=== PATIENT | female | born 1990 | race Caucasian/White ===

== ENCOUNTER 2024-08-21 17:04 | Emergency (ER) | payer OTHER, SELFPAY ==
[2024-08-21 17:17] VITALS: BP 128/61; PULSE 91; RESP 18; TEMP 37.1; O2SAT 98; BMI 28.9
[2024-08-21 17:31] LABS: MANUAL DIFF FLAG NO
[2024-08-21 17:36] LABS: Basophils Percent Auto 0.5 % (0-2); Eosinophils Percent Auto 0.2 % (0-4); Hematocrit 36.4 % (37.0-47.0); Hemoglobin 12.6 g/dl (12.0-16.0); Imm Gran Abs Auto 0.02 X10*3/uL (0.00-0.03); Imm Gran Pct Auto 0.5 % (0.0-0.4); Lymphocytes Absolute Auto 0.7 X10*3/uL (1.2-4.9); Lymphocytes Percent Auto 16.3 % (20-40); Mean Corpuscular HGB Conc 34.6 g/dl (31.0-35.0); Mean Corpuscular Hemoglobin 30.4 pg (27.0-33.0); Mean Corpuscular Volume 87.9 fL (80.0-98.0); Mean Platelet Volume 9.8 fL (9.4-12.3); Monocytes Absolute Auto 0.5 X10*3/uL (0.1-1.2); Monocytes Percent Auto 12.1 % (2-11); Neutrophils Absolute Auto 2.9 x10*3/uL (2.0-8.3); Neutrophils Percent Auto 70.4 % (45-73); Platelet Count 171 X10*3/uL (160-400); Red Blood Count 4.14 X10*6/uL (4.20-5.50); White Blood Count 4.1 X10*3/uL (4.8-10.8)
[2024-08-21 17:40] LABS: IDNOW Serial# 58CA691E; Strep A Nucleic Acid Negative (Negative)
[2024-08-21 17:48] LABS: Alanine Aminotransferase 24 U/L (0-31); Albumin Level 3.9 g/dL (3.5-5.0); Alkaline Phosphatase 50 U/L (39-117); Anion Gap 11 (12-20); Aspartate Amino Transferase 23 U/L (5-31); Bilirubin Total 0.6 mg/dL (0.0-1.0); Blood Urea Nitrogen 5 mg/dL (9-16); Calcium 9.1 mg/dL (8.4-10.2); Carbon Dioxide 22 mmol/L (22-29); Chloride 110 mmol/L (96-108); Creatinine Clr Calc Pharmacy 109.1; Estimated Glomerular Filt Rate > 60; Glucose Random 92 mg/dL (60-115); Potassium 4.1 mmol/L (3.3-5.1); Sodium 139 mmol/L (135-145); Total Protein 7.5 g/dL (6.5-8.0)
[2024-08-21 18:11] LABS: Influenza A PCR POSITIVE (Negative); Influenza B PCR NEGATIVE (Negative); Resp Syncy Virus RNA Qual PCR NEGATIVE (Negative); SARS COV2 PCR INHOUSE NEGATIVE (Negative)
[2024-08-21 20:32] VITALS: BP 137/68; PULSE 84; RESP 18; TEMP 36.8; O2SAT 100
--- NOTE | 2024-08-21 20:35 | ED.GENADULT ---
HPI - General Adult General Chief complaint: General Medical Stated complaint: Flu like symptoms/Unable to open mouth Time Seen by Provider: 08/21/24 20:35 Source: patient, RN notes reviewed and old records reviewed Mode of arrival: ambulatory Limitations: no limitations History of Present Illness ED Provider: Elissa SALAS narrative: 34-year-old female presents for evaluation of fevers, body aches, sore throat. Patient's symptoms started a little over 2 days ago on Tuesday morning. 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 She was able to open her mouth to reports that he is painful to do so and she was a lump on the right side of her throat Related Data Allergies Allergy/AdvReac Type Severity Reaction Status Date / Time ibuprofen Allergy Hives Verified 08/21/24 17:21 Review of Systems Constitutional: Constitutional: Reports body ache(s), Reports chills, Reports fever(s) and Denies headache(s) ENT: Denies vertigo, Denies dizziness, Denies headache(s), Reports sore throat and Reports throat swelling Cardiovascular: Cardiovascular: Denies chest pain and Denies dyspnea Respiratory: Respiratory: Reports cough and Denies dyspnea Gastrointestinal: Gastrointestinal: Denies abdominal pain, Reports nausea and Denies vomiting Musculoskeletal: Musculoskeletal: Denies back pain Integumentary/Breasts: Skin/Breast: Denies rash Neurologic: Denies vertigo, Denies dizziness and Denies headache(s) Allergic/Immunologic: Allergic/Immunologic: Reports throat swelling PMFSH Social History Social History Advance Directives: No Advance Directives Information Provided: No Physical Exam ED Vital Signs: Vital Signs - 24 hr 08/21/24 17:17 08/21/24 20:32 08/21/24 20:40 Temperature 98.8 F 98.2 F 98.2 F Pulse Rate 91 84 84 Respiratory Rate 18 18 18 Blood Pressure 128/61 137/68 137/68 Pulse Oximetry 98 100 100 Oxygen Delivery Method Room Air Room Air Room Air BMI result Body Mass Index 28.9 Const General: healthy appearing, comfortable, no acute distress, alert and awake Nutritional Appearance: well nourished Orientation/consciousness: patient oriented x3 HENMT Other: Retropharyngeal erythema but no evidence of abscess, no exudates. Uvula midline Head: Yes normocephalic and Yes atraumatic Eyes Eyelids: Yes eyelids normal Conjunctivae: conjunctivae normal Sclerae: sclerae normal Corneas: corneas normal Pupils: Equal, round and reactive pupils present EOM: EOMs intact bilaterally Neck Neck: Yes full ROM Resp Effort & Inspection: normal respiratory effort, able to speak in complete sentences, no audible wheezes and not labored Auscultation: clear to auscultation bilaterally Cardio Rate: regular rate Rhythm: regular rhythm Skin General skin exam: no rashes or lesions noted and elasticity normal Neuro General: patient oriented x3 Cranial nerves: Yes Equal, round and reactive pupils present and Yes Bilaterally intact EOM present Cognition (Neuro): normal cognition Extrem Other: Moving all extremities well without any obvious deformities Medical Decision Making Medical Decision Making [facility] Narrative: 34-year-old female presents for evaluation of flu-like symptoms, she does not fact have the flu. Labs are reviewed without any concerning abnormalities. She has a mild leukopenia which will likely related to the viral illness. No significant chemistry abnormalities warranting intervention. Vital signs are stable. She is outside the window for Tamiflu treatment, she will be treated symptomatically only. She was given a work note for the rest of the week so she does not infect others with the daycare Differential Diagnosis Differential Diagnoses: The differential diagnosis associated with the presentation includes Influenza COVID-19 Bronchitis Pneumonia Lab Data [facility] Lab Attestation statement: I reviewed the patient's lab results. As above 08/21/24 17:28 08/21/24 17:28 Labs: Lab Results 08/21/24 Range/Units 17:28 WBC 4.1 L (4.8-10.8) X10*3/uL RBC 4.14 L (4.20-5.50) X10*6/uL Hgb 12.6 (12.0-16.0) g/dl Hct 36.4 L (37.0-47.0) % MCV 87.9 (80.0-98.0) fL MCH 30.4 (27.0-33.0) pg MCHC 34.6 (31.0-35.0) g/dl RDW 13.0 (11.0-16.0) % Plt Count 171 (160-400) X10*3/uL MPV 9.8 (9.4-12.3) fL Immature Gran % (Auto) 0.5 H (0.0-0.4) % Neut % (Auto) 70.4 (45-73) % Lymph % (Auto) 16.3 L (20-40) % [place] % (Auto) 12.1 H (2-11) % Eos % (Auto) 0.2 (0-4) % Baso % (Auto) 0.5 (0-2) % Lymph # (Auto) 0.7 L (1.2-4.9) X10*3/uL [place] # (Auto) 0.5 (0.1-1.2) X10*3/uL Eos # (Auto) 0.0 (0.0-0.4) X10*3/uL Baso # (Auto) 0.0 (0.0-0.2) X10*3/uL Abs Immat Gran (auto) 0.02 (0.00-0.03) X10*3/uL Absolute Neuts (auto) 2.9 (2.0-8.3) x10*3/uL Absolute Nucleated RBC 0.000 (0.0-0.012) X10*3/uL Nucleated RBC % (auto) 0.0 (0.0-0.2) /100WBC Sodium 139 (135-145) mmol/L Potassium 4.1 (3.3-5.1) mmol/L Chloride 110 H (96-108) mmol/L Carbon Dioxide 22 (22-29) mmol/L Anion Gap 11 L (12-20) BUN 5 L (9-16) mg/dL Creatinine 0.70 (0.5-1.4) mg/dL Estim Creat Clear Calc 109.1 Estimated GFR > 60 Random Glucose 92 (60-115) mg/dL Calcium 9.1 (8.4-10.2) mg/dL Total Bilirubin 0.6 (0.0-1.0) mg/dL AST 23 (5-31) U/L ALT 24 (0-31) U/L Alkaline Phosphatase 50 (39-117) U/L Total Protein 7.5 (6.5-8.0) g/dL Albumin 3.9 (3.5-5.0) g/dL Influenza Type A (PCR) POSITIVE A (Negative) Influenza Type B (PCR) NEGATIVE (Negative) RSV RNA Qual (PCR) NEGATIVE (Negative) SARS-CoV-2 RNA (RT-PCR) NEGATIVE (Negative) S. pyogenes GrpA NIGEL Negative (Negative) Discharge Plan Discharge Clinical Impression: Influenza A Patient Disposition: Home, Self-Care Instructions: Influenza (ED) Additional Instructions: You tested positive for influenza A. Your white blood cell count was just below normal which is a common result of the flu The rest of your blood work was reassuring The swollen gland in your neck she will resolve after about a week or 2 when the flu resolves Use ibuprofen/Tylenol for fevers and body aches Return for new or worsening symptoms, follow up with your primary doctor Stand Alone Forms: Work/School Release Interventions: ED Discharge Assessment Last Done: 08/21/24 20:40 Discharge Date/Time: 08/21/24 20:46 Print Language: Amharic
[2024-08-21 20:40] VITALS: BP 137/68; PULSE 84; RESP 18; TEMP 36.8; O2SAT 100
--- OUTSIDE RECORDS SUMMARY | 2024-08-21 20:42 | XMS_ITS | Encounter Summary ---
Author Organization [facility] Address [address] [place] [address] Care Team Providers Care Doctor'S Assistant Name Role Phone Enedina Gustafson MD Primary Care Provider [phone] Reason for Visit * Reason Onset Date Comments Sore Throat 08/21/2024 Vomiting 08/21/2024 Encounter Details Date Type Department Care Team (Late st Contact Info) Description 08/21/2024 Nurse Triage Adult Medicine [facility] [address] [place] [phone] Enedina Gustafson MD [address] [place] [address] Sore Throat; Vomiting Social History Tobacco Use Types Packs/Day Years Used Date Smoking Tobacco: Never Smokeless Tobacco: Never Alcohol Use Standard Drinks/Week Comments No 0 (1 standard drink = 0.6 oz pur e alcohol) Housing Instability Answer Date Recorde d Are you worried that in the next 2 months you may not have stable housing? No 07/08/2024 Food Access & Nutrition Answer Date Rec orded Do you have access to a vari ety of food including fruits and vegetables? Yes 07/08/2024 Access to Healthcare Answer Date Record ed Within the last 3 months, ho w many times did you visit the emergency department for your medical care? 0 07/08/2024 Health Literacy Answer Date Recorded How often do you need to hav e someone help you when you read instructions, pamphlets, or other written material from your doctor or pharmacy? Sometimes 07/08/2024 Caregiver: How often do you need to have someone help you when you read instructions, pamphlets, or other written material from your doctor or pharmacy? Not on file 07/08/2024 Financial Risk Answer Date Recorded How hard is it for you to pa y for the very basics like food, housing, medical care, and air conditioning / heating? Not very hard 07/08/2024 Transportation Answer Date Recorded Has the lack of transportati on kept you from meetings, work, or from getting things needed for daily living? No Has the lack of transportati on kept you from medical appointments or from getting medications? No 07/08/2024 Social Isolation Answer Date Recorded How often do you feel lonely or isolated from those around you? Sometimes 07/08/2024 Food Risk Answer Date Recorded Within the past 12 months we worried whether our food would run out before we got money to buy more. Never true 07/08/2024 Within the past 12 months th e food we bought just didn't last and we didn't have money to get more. Never true 07/08/2024 Dependent Care Answer Date Recorded Do you need help finding or paying for care for your loved ones. For example, child care director or elderly care for an older adult? Yes 07/08/2024 Education Answer Date Recorded Do you think completing more education or training, like finishing a GED, going to college, or learning a trade, would be helpful for you? Patient declined 07/08/2024 Employment and Income Answer Date Recor ded During the last four weeks, have you been actively looking for work? Unable to respond 07/08/2024 Living Situation Answer Date Recorded What is your living situation? 0 07/08/2024 Comments No Sex and Gender Information Value Date Recorded Sex Assigned at Not on file Legal Sex Female 2:01 PM EST Gender Identity Not on file Sexual Orientation Not on file documented as of this encounter Progress Notes * Penny Nolan RN - 08/21/2024 1:15 PM EDT She was instructed to go to the ER for further evaluation and treatment. She is in agreement with this plan and states she will go to [facility] ER. Reason for Disposition Unable to open mouth completely Answer Assessment - Initial Assessment Questions 1. ONSET: When did the throat start hurting? (Hours or days ago) 08/19/24 2. SEVERITY: How bad is the sore throat? (Scale 1-10; mild, moderate or severe) - MILD (1-3): Doesn't interfere with eating or normal activities. - MODERATE (4-7): Interferes with eating some solids and normal activities. - SEVERE (8-10): Excruciating pain, interferes with most normal activities. - SEVERE WITH DYSPHAGIA (10): Can't swallow liquids, drooling. She rates the sore throat as 8/10. She has pain when she swallows. 3. STREP EXPOSURE: Has there been any exposure to strep within the past week? If Yes, ask: What type of contact occurred? No known exposure. She went to her niece's birthday green party on Tuesday. 4. VIRAL SYMPTOMS: Are there any symptoms of a cold, such as a runny nose, cough, hoarse voice or red eyes? Cough and hoarse voice 5. FEVER: Do you have a fever? If Yes, ask: What is your temperature, how was it measured, and when did it start? Chills this morning. Did not take temp as she does not have a thermometer. 6. PUS ON THE TONSILS: Is there pus on the tonsils in the back of your throat? Unknown 7. OTHER SYMPTOMS: Do you have any other symptoms? (e.g., difficulty breathing, headache, rash) She is also reporting body aches, chills, slight headache and vomiting. No rash. 8. : Is there any chance you are ? When was your last menstrual period? No. Her LMP was 08/03/24 Protocols used: Sore Throat-A-AH * Isabel Tapia - 08/21/2024 12:18 PM EDT Patient call requires triage: Symptoms patient is presenting: c/o bad sore throat, body aches, chills and vomiting. How long has patient had these symptoms?: 08/19/24 For ALL patients calling to schedule any appointment (routine, sick visit, follow up, consult, etc.) in the outpatient setting please ask the following questions: Do you have fever of higher than 101, sore throat with difficulty swallowing or severe shortness ofbreath? no If YES to any of these above symptoms, send a message to triage and do not book. Red dot. If no, an audio or video visit should be booked. Have you had close contact with someone with Coronavirus in the last 14 days? no Have you traveled abroad? no Have you traveled recently to another state outside of [place], [place], [place], [place], [place], [place], [place]? no o If yes, did you quarantine for 14 days or have a negative covid test? no If yes to any of the above, patient is not to be scheduled in office until after 14 day quarantine or negative covid test. If pain or injury related was it due to an accident at work or from a motor vehicle accident? If yes, date of accident/Injury: No If yes, gather 3rd green party insurance information Third Constitution Party Information: not applicable PCP: Enedina Gustafson MD Payor: [facility] MEDICARE / Plan: [employer] ONE CARE / Product Type: *No Product type* / documented in this encounter Plan of Treatment Upcoming Encounters Date Type Department Care Team (Late st Contact Info) Description 09/24/2024 9:15 AM EDT Consult Orthopedic Surgery - [place] [address] [address] [phone] Yanick Guidry DPM [address] [address] 10/18/2024 9:00 AM EDT Office Visit Obstetrics and Gynecology - [address] [phone] Jessenia Springer CNM [address] [place] [address] documented as of this encounter Visit Diagnoses Not on filedocumented in this encounter Additional Health Concerns Assessment Noted Time PHQ-9 Depression Total Score: 18 025 10:20 AM EST documented as of this encounter Care Teams Doctor'S Assistant Relationship Specialty Start Date End Date Enedina Gustafson MD [address] [place] [address] PCP - General Internal Medicine 03/21/15 documented as of this encounter
--- OUTSIDE RECORDS SUMMARY | 2024-08-21 20:42 | XMS_ITS | Clinical Summary ---
Author Organization [facility] [address] [facility] Address [address] [place] [address] Phone Care Team Providers Care Engineering Scientist Name Role Phone Enedina Gustafson MD Primary Care Provider [phone] Allergies No known active allergies Medications lurasidone (LATUDA) 80 mg tablet Take 1 tablet (80 mg total) by mouth. 4 Active topiramate (TOPAMAX) 50 mg tablet Take 1 tablet (50 mg total) by mouth. 4 Active betamethasone dipropionate (DIPROSONE) 0.05 % ointment Apply topically. 4 Active diclofenac (VOLTAREN) 1 % topical gel Apply 1 g topically every 6 (six) hours. 4 Active triamcinolone (KENALOG) 0.1 % cream Apply topically. 4 Active Humira,CF, Pen [id number]-BZ-ID 80 mg/0.8 mL pen Inject 0.8 mL (80 mg total) under the skin. 3 Active SUMAtriptan (IMITREX) 50 mg tablet Take 1 tablet (50 mg total) by mouth. 3 Active Setlakin 0.15 mg-30 mcg (91) per tablet TAKE 1 TABLET BY MOUTH DAILY 91 tablet 5 Active Additional Information Patient not taking.Reported on 07/23/2024 omeprazole (PriLOSEC) [address] capsule Take 1 capsule (20 mg total) by mouth 1 (one) time each day. 90 each 3 5 Active medroxyPROGESTER one (PROVERA) 10 mg tabletIndication s:Amenorrhea Take 1 tablet (10 mg total) by mouth 1 (one) time each day for 10 days. 10 tablet 5 Active Active Problems Problem Noted Date Diagnosed Date Family history of breast cancer 07/23/2024 Overview (07/23/2024): 11/2022- Negative Genetic testing, 22.9% Terer-Cuzick score Bipolar affective disorder 05/08/2024 Depression with anxiety 05/08/2024 Eczema 07/06/2023 Hidradenitis suppurativa 08/05/2021 Overview (06/28/2024): GERD (gastroesophageal reflux disease) 0 Marijuana use 05/23/2019 OCD (obsessive compulsive disorder) 12/29/2017 Obesity (BMI 30.0-34.9) 08/18/2017 IBS (irritable bowel syndrome) 07/13/2017 Personality disorder 10/14/2011 Overview (05/08/2024): Follows at [facility] [place] [facility], gets meds through them Resolved Problems Problem Noted Date Diagnosed Date Resolved Date Family history of breast can cer in first degree relative 05/08/2024 06/28/2024 Encounters Date Type Department Care Team Description 08/21/2024 Nurse Triage Adult Medicine [facility] - [address] [phone] Enedina Gustafson MD Sore Throat; Vomiting 07/25/2024 Telephone Obstetrics and Gynecology - [address] [phone] Jessenia Springer CNM 07/23/2024 9:45 AM EST Office Visit Obstetrics and Gynecology - [address] [phone] Jessenia Springer CNM Encounter for gynecological examination without abnormal finding (Primary Dx); Urine test negative; Night sweats; Amenorrhea; control counseling 07/09/2024 9:00 AM EST Office Visit Adult [address] [phone] Enedina Gustafson MD Routine general medical examination at a health care facility (Primary Dx); Hidradenitis suppurativa; Bipolar disorder in partial remission, most recent episode unspecified type (CMS/HCC); Gastroesophageal reflux disease without esophagitis; Pain in both feet; Personality disorder (CMS/HCC) 06/20/2024 Telephone Obstetrics and Gynecology [address] [phone] Anne Pierre MD Menstrual Problem 05/29/2024 Telephone Adult Medicine [address] [phone] Enedina Gustafson MD MMR from Last 3 Months Immunizations Name Administration Dates Next Due Rabies Vaccine, For Intramus cular Injection Retired Code 10/16/2019,10/13/2019 Rho (D) Immune Globulin 10/20/2019,10/16/2019, Tdap Tetanus diptheria acell ular pertussis (Boostrix; Adacel) 7yo and older 10/13/2019,11/10/2011 Surgical History Surgery Date Site/Laterality Comments COLONOSCOPY 05/02/2017 normal Medical History Medical History Date Comments Bipolar affective disorder (CMS/HCC) Depression with anxiety Schizophrenia, schizo-affective type (CMS/HCC) IBS (irritable bowel syndrome) 07/13/2017 Obese 08/18/2017 OCD (obsessive compulsive disorder) 12/29/2017 GERD (gastroesophageal reflux disease) 0 Migraines without aura Family History Medical History Relation Name Comments Breast cancer Aunt maternal possibly ovari an cancer (?) Other: glaucoma suspect Brother x 1 Other: fatty liver Father Other: PTSD Half-Sister x 1 Breast cancer Mother BRCA negative; HTN, HLD, diabetes Relation Name Status Comments Aunt maternal Brother x 1 Alive Father Alive Half-Sister x 1 Alive Maternal Grandfather Maternal Grandmother Alive Mother Alive Paternal Grandfather Paternal Grandmother Social History Tobacco Use Types Packs/Day Years Used Date Smoking Tobacco: Never Smokeless Tobacco: Never Tobacco Cessation:Counseling Given: Not Answered Alcohol Use Standard Drinks/Week Comments No 0 [...] care for your loved ones. For example, childcare teacher or elderly care for an older adult? [...] on file Sexual Orientation Not on file Obstetrics History Para Term AB IAB SAB Ectopic Multiple Livin g Live Births 2 1 1 1 1 1 1 Date Outcome GA Total Labor Labor/2nd/3rd Weight Sex Type Anes PTL Natalia A1 A5 Name Clin 1 IAB 2011 Term 39w 6d 8h 30m/ 2807 g (99 oz) M Vag-S pont Epidur al Livin g 8 9 [facility] Delivery Location:[facility] Comments:marginal cord insertion Last Filed Vital Signs Vital Sign Reading Time Taken Comments Blood Pressure 123/84 07/23/2024 9:30 AM EST Pulse 92 07/23/2024 9:30 AM EST Temperature 36.2 ??C (97.2 ??F) 07/09/2024 8:57 AM ES T Respiratory Rate 14 07/09/2024 8:57 AM EST Oxygen Saturation 98% 07/09/2024 8:57 AM EST Inhaled Oxygen Concentration - - Weight 75.3 kg (166 lb) 07/23/2024 9:30 AM EST Height 160 cm (5' 3 ) 07/09/2024 8:57 AM EST Body Mass Index 29.41 07/09/2024 8:57 AM EST Plan of Treatment Upcoming Encounters Date Type Department Care Team (Late st Contact Info) Description 09/24/2024 9:15 AM EDT Consult Orthopedic Surgery - [place] [address] [phone] Yanick Guidry, TOMASA [address] [address] 10/18/2024 9:00 AM EDT Office Visit Obstetrics and Gynecology [address] [phone] Jessenia Springer, RONM [address] [place] [address] [place] [address] Health Maintenance Due Date Last Done Comments Hepatitis B Vaccines (1 of 3 - 19+ 3-dose series) 2009 COVID-19 Vaccine (3 - Pfizer risk series) 07/16/2021 06/18/2021, 05/28/2021 Medicare Annual Wellness Visit 05/17/2022 Influenza Vaccine (#1) 2024 Postp oned from 02/12/2024 (Patient Refused) Depression Screening 07/08/2025 07/08/2024 Social Influencers of Health Screening 07/08/2025 07/08/2024 Cholesterol Screening (Lipid Panel) 07/07/2028 07/07/2023 Cervical Cancer Screening: HPV 07/23/2029 07/23/2024, 07/23/2024, 05/12/2020, Additional history exists DTaP,Tdap,and Td Vaccines (3 - Td or Tdap) 10/12/2029 10/13/2019, 11/10/2011 HIV Screening Completed 10/01/2020 Hepatitis C Screening Completed 10/01/2020 HIB Vaccines Aged Out No longer eligi ble based on patient's age to complete this topic HPV Vaccines Aged Out No longer eligi ble based on patient's age to complete this topic Hepatitis A Vaccines Aged Out No long er eligible based on patient's age to complete this topic IPV Vaccines Aged Out No longer eligi ble based on patient's age to complete this topic MMR Vaccines Aged Out No longer eligi ble based on patient's age to complete this topic Meningococcal ACWY Vaccine Aged Out N o longer eligible based on patient's age to complete this topic Meningococcal B Vacine Aged Out No lo nger eligible based on patient's age to complete this topic Pneumococcal Vaccine: Pediatrics (0 to 5 Years) and At-Risk Patients (6 to 64 Years) Aged Out No longer eligible based on patient's age to complete this topic RSV Immunization Patients Under 20 months Aged Out No longer eligible based on patient's age to complete this topic Varicella Vaccines Aged Out No longer eligible based on patient's age to complete this topic Procedures Procedure Name Priority Date/Time Associated Diagnosis Comments THYROID STIMULATING HORMONE WITH REFLEX TO FREE T4 AND FREE T3 Routine 07/24/2024 8:02 AM EST Night sweats PAP SMEAR Routine 07/23/2024 1:30 PM EST Encounter for gynecological examination without abnormal finding HPV GENOTYPE Routine 07/23/2024 1:30 PM EST Encounter for gynecological examination without abnormal finding HPV WITH REFLEX GENOTYPE Routine 07/23/2024 1:30 PM EST Encounter for gynecological examination without abnormal finding POC , URINE DIAGNOSTIC Routine 07/23/2024 9:35 AM EST Urine test negative RUBELLA ANTIBODY IGG Routine 06/05/2024 1:05 PM EST Antibody response exam Screening for endocrine, metabolic and immunity disorder RUBEOLA ANTIBODY IGG Routine 06/05/2024 1:05 PM EST Antibody response exam Screening for endocrine, metabolic and immunity disorder MUMPS ANTIBODY IGG Routine 06/05/2024 1: 05 PM EST Antibody response exam Screening for endocrine, metabolic and immunity disorder LIPID PANEL Routine 07/07/2023 HEPATITIS C SCREENING Routine 10/01/2020 HIV SCREENING Routine 10/01/2020 from Last 3 Months or Most Recently Relevant to Health Maintenance Results * Thyroid stimulating hormone with reflex to free t4 and free t3 (07/24/2024 8:02 AM EST) TSH 1.62 0.40 - 4.00 mcIU/mL LAB CHEMISTRY METHOD 07/24/2024 10:33 AM EST [facility] Blood Venous blood specimen / Unknown Venipuncture / Unknown 07/24/2024 8:02 AM EST 07/24/2024 8:02 AM EST Jessenia VELASQUEZ LAB BLOOD ORDERABLES Final Res ult [facility] [address] [place] [address], [place] [phone] * HPV genotype (07/23/2024 1:30 PM EST) HPV Type 16 Negative Negative LAB MICROBIOLOGY METHOD 07/25/2024 2:35 PM EST [facility] HPV Type 18/45 Negative Negative LAB MICROBIOLOGY METHOD 07/25/2024 2:35 PM EST [facility] HPV Type 16,18, and others Valid LAB MICROBIOLOGY METHOD 07/25/2024 2:35 PM EST [facility] Brushing/Spatula Cervix uteri structure / Unknown 07/23/2024 1:30 PM EST 07/24/2024 6:13 AM EST us Jessenia Springer CNM LAB MOLECULAR DIAGNOSTICS YUSUF BRITO Final Result Performing Organization Address [facility] Co de Phone Number [facility] [address] [place] [address], [place] [phone] * (ABNORMAL) HPV with reflex genotype (07/23/2024 1:30 PM EST) HPV Positive( A) Negative LAB MICROBIOLOGY METHOD 07/24/2024 3:50 PM EST [facility] Brushing/Spatula Cervix uteri structure / Unknown 07/23/2024 1:30 PM EST 07/24/2024 6:13 AM EST us Jessenia Springer CNM LAB MOLECULAR DIAGNOSTICS YUSUF BRITO Final Result Performing Organization Address City/[facility]/ZIP Co de Phone Number [facility] [address] [place] [address], [place] [phone] * Pap smear (07/23/2024 1:30 PM EST) Interpretation Negative for intraepithelial lesion or malignancy 07/26/2024 9:26 AM [facility] Clinical Information HPV Positive 07/26/2024 9:26 AM [facility] General Categorization Negative 07/26/2024 9:26 AM [facility] Other Findings Shift in tomás suggestive of bacterial vaginosis 07/26/2024 9:26 AM [facility] LMP 04/24/2024 07/26/2024 9:26 AM [facility] Specimen Adequacy Satisfactory for evaluation, endocervical/boyer sformation zone component present 07/26/2024 9:26 AM [facility] Pap Methodology Liquid Based Pap Test 07/26/2024 9:26 AM [facility] Disclaimer The Pap test is a screening test which carries an inherent false negative rate. These test results should be correlated with the patient's clinical findings and history. This Pap test was processed using an automated screening system. Technical cytopathology services provided by [facility], at [address] [place] [address] (CLIA # [id number]/Lamar Higuera MD, Muff Winder.) 07/26/2024 9:26 AM [facility] Console Pap Interpretation Reported 07/26/2024 9:26 AM [facility] Brushing/Spatula Cervix uteri structure / Unknown 07/23/2024 1:30 PM EST 07/23/2024 1:30 PM EST Jessenia Springer CNM LAB CYTOLOGY ORDERABLES Final Result [facility] [address] [place] [address], * POC , urine manually resulted (07/23/2024 9:35 AM EST) Pathologist [facility] HCG, Ur POC Negative Negative POC hCG Int QC Pass? Yes Yes Urine Urine specimen obtained by clean catch procedure / Unknown 07/23/2024 9:35 AM EST Jessenia Springer CNM POINT OF CARE TEST ENTER/EDIT ORDERABLES Final Result * Rubeola antibody IgG (06/05/2024 1:05 PM EST) Pathologist [facility] Rubeola IgG Positive Positive LAB CHEMISTRY METHOD 06/07/2024 8:51 AM EST [facility] Rubeola IgG Antibody, measured 24.20 >=16.50 AU/mL LAB CHEMISTRY METHOD 06/07/2024 8:51 AM EST [facility] Blood Venous blood specimen / Unknown Venipuncture / Unknown 06/05/2024 1:05 PM EST 06/05/2024 1:05 PM EST Narrative [facility] - 06/07/2024 8:51 AM EST Interpretation >=16.5 AU/ml is considered to be consistent with Immunity Enedina Gustafson MD LAB BLOOD ORDERABLES Final Resul t [facility] [address] [place] [address], * Rubella antibody IgG (06/05/2024 1:05 PM EST) [facility] Rubella IgG Quant 43.8 >=10.0 I Unit/mL LAB CHEMISTRY METHOD 06/05/2024 4:57 PM EST [facility] Rubella IgG Antibody Interp Positive Positive LAB CHEMISTRY METHOD 06/05/2024 4:57 PM EST [facility] Blood Venous blood specimen / Unknown Venipuncture / Unknown 06/05/2024 1:05 PM EST 06/05/2024 1:05 PM EST Enedina Gustafson MD LAB BLOOD ORDERABLES Final Resul t [facility] [address] [place] [address], [place] [phone] * Mumps antibody IgG (06/05/2024 1:05 PM EST) [facility] Mumps IgG Positive Positive LAB CHEMISTRY METHOD 06/07/2024 8:51 AM EST [facility] Mumps IgG Antibody, measured 61.9 >=11.0 AU/mL LAB CHEMISTRY METHOD 06/07/2024 8:51 AM EST [facility] Blood Venous blood specimen / Unknown Venipuncture / Unknown 06/05/2024 1:05 PM EST 06/05/2024 1:05 PM EST Narrative [facility] - 06/07/2024 8:51 AM EST >=11 AU/mL is considered to be consistent with Immunity. us Enedina Gustafson MD LAB BLOOD ORDERABLES Final Resul t Performing Organization Address [facility] Co de Phone Number [facility] [address] [place] [address], [place] [phone] * (ABNORMAL) Lipid panel (07/07/2023) [facility] LDL/HDL Ratio 6(A) 0 - 4 Triglycerides 164(A) 0 - 150 mg/dL Cholesterol 206(A) 0 - 200 mg/dL HDL 37(A) >=40 mg/dL LDL Cholesterol 137(A) 0 - 100 mg/dL Blood Venous blood specimen / Unknown Historical Provider LAB BLOOD ORDERABLES Heather l Result * HIV Screening (10/01/2020) Pathologist [facility] HIV Screening abstracted Historical Provider HEALTH MAINTENANCE Final Result * Hepatitis C Screening (10/01/2020) Pathologist [facility] Hepatitis C Screening abstracted us Historical Provider HEALTH MAINTENANCE Final Result from Last 3 Months or Most Recently Relevant to Health Maintenance Insurance [employer] Member Subscriber Plan / Payer (Ef fective 2020-Present) Name:Marlyn Samaniego Relation to Subscriber:Self Name:Marlyn Samaniego Payer ID:[id number] Group ID:[id number] Type:Not on file Address: [place] [address] [address] Care Teams Engineering Scientist Relationship Specialty Start Date End Date Enedina Gustafson MD [address] [place] [address] PCP - General Internal Medicine 03/21/15
--- OUTSIDE RECORDS SUMMARY | 2024-08-21 20:42 | XMS_ITS | Encounter Summary ---
Author Organization [facility] Address [address] [place] [address] Care Team Providers Care Insect Control Inspector Name Role Phone Enedina Gustafson MD Primary Care Provider [phone] Reason for Visit * Reason Comments Annual Exam Encounter Details Date Type Department Care Team (Late st Contact Info) Description 07/23/2024 9:45 AM EST Office Visit Obstetrics and Gynecology - [place] [address] [place] [address] Jessenia Springer, [facility] [address] [place] [address] Encounter for gynecological examination without abnormal finding (Primary Dx); Urine test negative; Night sweats; Amenorrhea; control counseling Social History Tobacco Use Types Packs/Day Years [...] Record ed Within the last 3 months, patrick w many times did you visit the [...] care for your loved ones. 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 [...] on file documented as of this encounter Last Filed Vital Signs Vital Sign Reading Time Taken Comments Blood Pressure 123/84 07/23/2024 9:30 AM EST Pulse 92 07/23/2024 9:30 AM EST Temperature - - Respiratory Rate - - Oxygen Saturation - - Inhaled Oxygen Concentration - - Weight 75.3 kg (166 lb) 07/23/2024 9:30 AM EST Height - - Body Mass Index 29.41 07/09/2024 8:57 AM EST documented in this encounter Ordered Prescriptions Prescription Sig Dispense Quantity Refills Last Filled Start Date End Date medroxyPROGESTERone (PROVERA) 10 mg tabletIndications:A menorrhea Take 1 tablet (10 mg total) by mouth 1 (one) time each day for 10 days. 10 tablet 07/23/2024 documented in this encounter Progress Notes * Jessenia Springer, AGUSTIN - 07/23/2024 9:45 AM EST CHIEF COMPLAINT: Annual Exam IDENTIFIER:Marlyn Samaniego is a 34 y.o. female. HPI: Marlyn has been in state of Good health since her last exam. She has the following concerns LMP inNovember. She was doing extended cycle pills until then and was getting a period every 3months. Shestopped her OCPs because missed some doses and has not resumed her period yet. She has been doing coitus interruptus for the past 3 months. Last UPI 3 weeks ago. Wants to resume extended cycle OCPs. She reports some night sweats and hot flashes She reports losing 60lb in the past year and a half, she is exercising at home. Lives at home with her son. Works at a daycare. Pt is involved in a relationship with her boyfriendx 13 years. Patient's last menstrual period was 04/24/2024. She has no concerns of STD's and feels safe with her partner. Patient is sexually active, would not like STI testing today. LAST PAP- 2019- NIL/HPV neg, will collect today Colonoscopy- 2017- Normal She has strong fam hx of breast cancer, believes she had Genetic testing. ROS: GENERAL: No malaise, significant weight loss or fever NECK: No lumps, goiter, pain or significant neck swelling RESPIRATORY: No cough, wheezing or shortness of breath CARDIOVASCULAR: No chest pain, leg swelling or palpitations BREAST: no lumps, discharge, pain or change in skin GI: No abdominal discomfort : No dysuria, frequency or incontinence GLASS BLOCK BENDER: No abnormal vaginal bleeding or abnormal vaginal discharge. PSYCH: Anxiety, depression, schizophrenia and Bipolar- stable on meds, seeing a therapist. Denies SI/HI. PAST MEDICAL HISTORY: OB History Para Term AB Living 2 1 1 1 1 SAB IAB Ectopic Multiple Live Births 1 1 # Outcome Date GA Lbr Florin/2nd Weight Sex Type Anes PTL Lv 2 Term 02/20/12 [id number] 08:30 2807 g (99 oz) M Vag-Spont EPI MARIA DE JESUS Comments: marginal cord insertion 1 IAB 01/2011 Patient Active Problem List Diagnosis Bipolar affective disorder (CMS/HCC) Depression with anxiety Personality disorder (CMS/HCC) IBS (irritable bowel syndrome) Obesity (BMI 30.0-34.9) OCD (obsessive compulsive disorder) Marijuana use GERD (gastroesophageal reflux disease) Hidradenitis suppurativa Eczema Past Surgical History: Procedure Laterality Date COLONOSCOPY 05/02/2017 normal SOCIAL HISTORY: Social History Tobacco Use Smoking status: Never Smokeless tobacco: Never Substance Use Topics Alcohol use: No FAMILY HISTORY: Family History Problem Relation Name Age of Onset Breast cancer Mother 44 BRCA negative; HTN, HLD, diabetes Other (Other: fatty liver) Father Other (Other: glaucoma suspect) Brother x 1 Other (Other: PTSD) Half-Sister x 1 Breast cancer Aunt maternal possibly ovarian cancer (?) MEDICATIONS: There are no discontinued medications. ACTIVE MEDICATIONS: Outpatient Medications Marked as Taking for the 07/23/24 encounter (Office Visit) with Jessenia Springer CNM Medication Sig Dispense Refill Humira,CF, Pen [id number] 80 mg/0.8 mL pen Inject 0.8 mL (80 mg total) under the skin. lurasidone (LATUDA) 80 mg tablet Take 1 tablet (80 mg total) by mouth. omeprazole (PriLOSEC) [address] capsule Take 1 capsule (20 mg total) by mouth 1 (one) time each day.90 each 3 SUMAtriptan (IMITREX) 50 mg tablet Take 1 tablet (50 mg total) by mouth. topiramate (TOPAMAX) 50 mg tablet Take 1 tablet (50 mg total) by mouth. triamcinolone (KENALOG) 0.1 % cream Apply topically. I have reviewed the following sections of the chart: Medical, surgical, family, social and OB history PHYSICAL EXAM: Visit Vitals BP 123/84 Pulse 92 Wt 75.3 kg (166 lb) LMP 04/24/2024 BMI 29.41 kg/m?? OB Status Having periods Smoking Status Never BSA 1.79 m?? APPEARANCE: Alert and in no acute distress NECK: Neck supple, no adenopathy, thyroid symmetric and of normal size HEART: RRR with normal S1 and S2 ,no murmurs LUNG: clear to auscultation BREAST (FEMALE): Symmetrical, normal consistency without masses or adenopathy LYMPH NODES: grossly normal ABDOMEN: Soft, non-tender, without organomegaly or palpable masses GLASS BLOCK BENDER (FEMALE): External genitalia normal, normal cervix without lesions, polyps or tenderness, uterus normal size, shape, consistency, no mass or tenderness, adnexa normal in size without mass or tenderness RECTAL (FEMALE): Anus normal. EXTREMITIES: Extremities warm and well perfused, no cyanosis, or edema NEURO: Awake, alert and oriented x 3 SKIN: Skin color, texture, turgor normal. No rashes or lesions. This is to document that was given the opportuntiy to have a stem roller present during a sensitive examination at today's visit. She declined this offer of a stem roller. LABS/Imaging NA IMPRESSION: 1. Encounter for gynecological examination without abnormal finding 2. Urine test negative 3. Night sweats 4. Amenorrhea 5. control counseling PLAN: Orders Placed This Encounter Procedures Thyroid stimulating hormone with reflex to free t4 and free t3 POC , urine manually resulted Pap smear During the visit, the following areas of concern were addressed: Monitor Menses, Contraception Discussed, Healthy Diet, Regular Exercise, Family History Reviewed and Hereditary Cancer Screening is not Indicated, Breast Cancer Screening Guidelines Reviewed, and Cervical Cancer Screening Guidelines Reviewed Will do Provera challenge then resume OCPs- she wants to resume extended cycle pills. Amenorrhea likely due to terminologist use of OCPs. ACHES and BUM reviewed. Will return in 3 months for BC follow up. Jessenia Springer CNM documented in this encounter Plan of Treatment Upcoming Encounters Date Type Department Care Team (Late st Contact Info) Description 09/24/2024 9:15 AM EDT Consult Orthopedic Surgery - [place] [address] [phone] Yanick Guidry DPM 175 [facility] [address] [place] [id number] 10/18/2024 9:00 AM EDT Office Visit Obstetrics and Gynecology - [place] [address] [place], [place] [phone] Jessenia Springer CNM [address] [place], [place] documented as of this encounter Procedures Procedure Name Priority Date/Time Associated Diagnosis Comments HPV GENOTYPE Routine 07/23/2024 1:30 PM EST Encounter for gynecological examination without abnormal finding HPV WITH REFLEX GENOTYPE Routine 07/23/2024 1:30 PM EST Encounter for gynecological examination without abnormal finding PAP SMEAR Routine 07/23/2024 1:30 PM EST Encounter for gynecological examination without abnormal finding POC , URINE DIAGNOSTIC Routine 07/23/2024 9:35 AM EST Urine test negative documented in this encounter Results * Thyroid stimulating hormone with reflex to free t4 and free t3 (07/24/2024 8:02 AM EST) Pathologist [facility] TSH 1.62 0.40 - 4.00 mcIU/mL LAB CHEMISTRY METHOD 07/24/2024 10:33 AM EST [facility] Blood Venous blood specimen / Unknown Venipuncture / Unknown 07/24/2024 8:02 AM EST 07/24/2024 8:02 AM EST us Jessenia VELASQUEZ LAB BLOOD ORDERABLES Final Res ult [facility] [address] [place] [address], [place] [phone] * HPV genotype (07/23/2024 1:30 PM EST) HPV Type 16 Negative Negative LAB MICROBIOLOGY METHOD 07/25/2024 2:35 PM EST [facility] HPV Type 18/45 Negative Negative LAB MICROBIOLOGY METHOD 07/25/2024 2:35 PM EST [facility] HPV Type 16,18, and others Valid LAB MICROBIOLOGY METHOD 07/25/2024 2:35 PM EST [facility] Brushing/Spatula Cervix uteri structure / Unknown 07/23/2024 1:30 PM EST 07/24/2024 6:13 AM EST us Jessenia Springer [facility] MOLECULAR DIAGNOSTICS ORDE RABLES Final Result [facility] [address] [place] [address], [place] [phone] * (ABNORMAL) HPV with reflex genotype (07/23/2024 1:30 PM EST) HPV Positive( A) Negative LAB MICROBIOLOGY METHOD 07/24/2024 3:50 PM EST [facility] Brushing/Spatula Cervix uteri structure / Unknown 07/23/2024 1:30 PM EST 07/24/2024 6:13 AM EST us Jessenia VELASQUEZ LAB MOLECULAR DIAGNOSTICS ORDE RABLES Final Result Performing Organization Address City/[facility]/ZIP Co de Phone Number [facility] [address] [place] [address], [place] [phone] * Pap smear (07/23/2024 1:30 PM EST) Interpretation Negative for intraepithelial lesion or malignancy 07/26/2024 9:26 AM EST [facility] Clinical Information HPV Positive 07/26/2024 9:26 AM EST [facility] General Categorization Negative 07/26/2024 9:26 AM EST [facility] Other Findings Shift in tomás suggestive of bacterial vaginosis 07/26/2024 9:26 AM [facility] LMP 04/24/2024 07/26/2024 9:26 AM [facility] Specimen Adequacy Satisfactory for evaluation, endocervical/boyer sformation zone component present 07/26/2024 9:26 AM [facility] Pap Methodology Liquid Based Pap Test 07/26/2024 9:26 AM [facility] Disclaimer The Pap test is a screening test which carries an inherent false negative rate. These test results should be correlated with the patient's clinical findings and history. This Pap test was processed using an automated screening system. Technical cytopathology services provided by [facility], at [address] [place] [id number] (CLIA # [id number]/Lamar Higuera MD, Rover Tender.) 07/26/2024 9:26 AM [facility] Console Pap Interpretation Reported 07/26/2024 9:26 AM [facility] Brushing/Spatula Cervix uteri structure / Unknown 07/23/2024 1:30 PM EST 07/23/2024 1:30 PM EST us Jessenia Springer CNM LAB CYTOLOGY ORDERABLES Final Result [facility] [address] [place] [address], * POC , urine manually resulted (07/23/2024 9:35 AM EST) HCG, Ur POC Negative Negative POC hCG Int QC Pass? Yes Yes Urine Urine specimen obtained by clean catch procedure / Unknown 07/23/2024 9:35 AM EST us Jessenia Springer CNM POINT OF CARE TEST ENTER/EDIT ORDERABLES Final Result documented in this encounter Visit Diagnoses Diagnosis Encounter for gynecological examination without abnormal finding- Primary Urine test negative Night sweats Generalized hyperhidrosis Amenorrhea Absence of menstruation control counseling documented in this encounter Additional Health Concerns Assessment Noted Time PHQ-9 Depression Total Score: 18 025 10:20 AM EST documented as of this encounter Care Teams Insect Control Inspector Relationship Specialty Start Date End Date Enedina Gustafson MD [address] [place] [address] PCP - General Internal Medicine 03/21/15 documented as of this encounter
--- OUTSIDE RECORDS SUMMARY | 2024-08-21 20:42 | XMS_ITS | Encounter Summary ---
Author Organization [facility] Address [address] [place] [address] Care Team Providers Care Test Center Manager Name Role Phone Enedina Gustafson MD Primary Care Provider [phone] Encounter Details Date Type Department Care Team ([facility] st Contact Info) Description 07/25/2024 Telephone Obstetrics and Gynecology - [place] [address] [place] [address] Jessenia Springer, [facility] [address] [place] [address] Social History Tobacco Use Types Packs/Day Years [...] care for your loved ones. 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 [...] as of this encounter Progress Notes * Katerin Torres MA - 08/01/2024 12:30 PM EST Pt is aware of results and about HPV PK * Cira Lloyd MA - 07/26/2024 9:26 AM EST Left message for patient. * Susu Marina - 07/25/2024 10:35 AM EST Inform patient: ANY URGENT OR ABNORMAL RESULTS WIILL RESULT IN A CALL BACK TO THE PATIENT VINH. Type of test: :HPV - Saw test results on my chart and HPV states positive. Has questions. Date test was performed: 07/21/23 Where was the test performed: [address] [place] [id number] Who ordered this test?: Jessenia Springer CNM Is the doctor here today?: No Can the message wait until the doctor returns?: documented in this encounter Plan of Treatment Upcoming Encounters Date Type Department Care Team (Late st Contact Info) Description 09/24/2024 9:15 AM EDT Consult Orthopedic Surgery - [place] [address] [address] Yanick Guidry DPM [address] [address] 10/18/2024 9:00 AM EDT Office Visit Obstetrics and Gynecology - [address] [phone] Jessenia Springer CNM [address] [place] [address] documented as of this encounter Visit Diagnoses Not on filedocumented in this encounter Additional Health Concerns Assessment Noted Time PHQ-9 Depression Total Score: 18 025 10:20 AM EST documented as of this encounter Care Teams Test Center Manager Relationship Specialty Start Date End Date Enedina Gustafson MD [address] [place] [address] PCP - General Internal Medicine 03/21/15 documented as of this encounter
== END 2024-08-21 20:46 | disposition home or self-care (01) ==
PROVIDERS: Emergency Provider Emergency Medicine Emergency Medical Services; PCP Internal Medicine
DX: J10.1 Influenza due to other identified influenza virus with other respiratory manifestations (principal); R50.9 Fever, unspecified; M79.10 Myalgia, unspecified site; Z03.818 Encounter for observation for suspected exposure to other biological agents ruled out
CPT/HCPCS: 0241U; 80053; 85025; 87651; 99283